=== PATIENT | male | born 1985 | race Caucasian/White ===

== ENCOUNTER 2019-10-21 00:27 | Emergency (ER) | payer OTHER ==
[~2019-10-21] VITALS: Ht 185.4 cm; Wt 124.7 kg
[~2019-10-21 00:27] MED LIST: ACETAMINOPHEN650 M5 PO; ALBUTEROL2.5 MG/0.1; ALLERGY RELIEF10 M5 PO; AMOXICILLIN875 MG PO; COMBIVENT RESPIM4 GM; ECHINACEA167 MG; FISH OIL 1,0001 EAC5 PO; FLEXERIL PO; IBUPROFEN 800800 M1 PO; LEVOFLOXACIN750 MG PO; MINOCIN100 MG PO; NOHOMEMEDICATIONS; ZPAK PO
[2019-10-21] MEDS ORDERED: HYDROCODON-ACE1 EAC7 PO (00:58)
[2019-10-21] MEDS ORDERED: IBUPROFEN 800800 M1 PO (00:58)
[2019-10-21] MEDS ORDERED: AMOXICILLIN500 M1 PO (00:58)
[2019-10-21 01:25] VITALS: BP 145/99
== END 2019-10-21 01:25 | disposition home or self-care (01) ==
LOC: M.ERS 00:27
DX: H60.332 Swimmer's ear, left ear (principal); F17.210 Nicotine dependence, cigarettes, uncomplicated; Z88.1 Allergy status to other antibiotic agents; Z98.890 Other specified postprocedural states